=== PATIENT | male | born 1965 | race Caucasian/White ===

== ENCOUNTER 2017-11-23 21:09 | Emergency (ER) | payer OTHER ==
--- NOTE | 2017-11-23 21:30 | PDOC ---
Rapid Medical Evaluation Time Seen by Provider: 11/23/17 21:24 Medical Evaluation: 11/23/17 21:25 I have performed a brief in-person evaluation of this patient. The patient presents with a chief complaint of: b/l toe pain x 1 week now throbbing, was using dermico, reports insulin dependent diabetes. Denies fever, chills, NVD Pertinent physical exam findings: paronychia to L toe w/ tenderness, tenderness to R toe I have ordered the following: nothing The patient will proceed to the ED for further evaluation. Discharge Disposition - Diagnosis Toe pain - Referrals - Patient Instructions - Post Discharge Activity
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
[2017-11-23 21:53] VITALS: BP 140/83; PULSE 105; TEMP 98.6; BMI 40.4
== END 2017-11-23 22:04 | disposition home or self-care (01) ==
LOC: JER 21:09
DX: L03.032 Cellulitis of left toe (principal); L03.031 Cellulitis of right toe; B35.3 Tinea pedis
CPT/HCPCS: 99281-25